=== PATIENT | female | born 1940 | race Caucasian/White ===

== ENCOUNTER → 2017-04-01 | Day surgery (SDC) | payer MEDICARE, OTHER ==
[~2017-04-01] MED LIST: ALLE4TAB7 PO; ASPI81TA23 PO; ASPI81TA82 PO; BIOTCAP PO; BUPIVACAINE HCL PF 0.75% 30 ML VIAL ONE; CALC1TAB34 PO; CALTTAB5 PO; CHOL10008 PO; FLUT1SPR9; FLUT50SP EACH NARE; GUSE100S SQ; IPRA0.06 NEB; OMEG5CAP PO; PROPOFOL 200 MG/20 ML AMP IV ONE; ROSU10 PO; ROSU40 PO; TAB-TAB PO; TRIAMCINOLONE ACETONIDE 40 MG/ML VIAL I-ARTICULR ONE; VITA-13 PO
--- NOTE | 2017-04-03 10:39 | M6 ---
cc: ROBERT VINCENT M.D. DATE 04/01/2017 DATE OF 1940 PROCEDURE Fluoroscopically guided injection bilateral lumbar facet joints (bilateral L3-4, L4-5 and L5-S1 facet joints). History and physical was completed and signed. Consent was signed. Procedure site was marked. Medications were listed and reconciled. Pain score was recorded. Allergies were noted. Time out was taken. Fluoroscopy time was recorded where applicable. Sedation was administered or directed by Dr. Vincent. The patient was given oxygen. The patient was monitored by a registered nurse. Total procedure time was greater than 15 minutes. PROCEDURE IV was started, blood pressure cuff, pulse oximeter and EKG were applied. The patient was placed in the prone position on a Jose table, sedated with small amounts of propofol titrated to effect. Vital signs were monitored and remained stable throughout the procedure. The lumbar area was prepped with alcohol and 10% Betadine solution and draped with sterile drapes. Fluoroscopy was used in a Clive dog view to clearly visualize the bilateral lumbar facet joints at L3-4, L4-5 and L5-S1. Separate sterile 3-1/2-inch, 25-gauge spinal needles were advanced into these joints under fluoroscopic guidance. There was negative aspiration for blood or any other type of fluid and at each location the patient was given 1 mL of Marcaine 0.75% which contained 10 mg of Kenalog. Following the procedure the patient was taken to the recovery room with stable vital signs, neurologically intact. She will be evaluated immediately and with followup to determine if she has a subjective decrease in her usual pain and a corresponding objective increase in her functional capabilities. WEmmanuel Vincent MD [facility] /9:45 AM /10:18 AM
== END | disposition home or self-care (01) ==
LOC: PHSDC 08:11
PROVIDERS: ATTEND Pain Medicine Interventional Pain Medicine
DX: M54.5 Low back pain (principal); Z86.73 Personal history of transient ischemic attack (TIA), and cerebral infarction without residual deficits; J44.9 Chronic obstructive pulmonary disease, unspecified; Z79.82 Long term (current) use of aspirin
CPT/HCPCS: 64493; 64494; 64495; 99152; J3301